=== PATIENT | female | born 1995 | race Two or more races ===

== ENCOUNTER 2020-10-09 21:53 | Emergency (ER) | payer SELFPAY ==
[~2020-10-09] VITALS: Ht 172.7 cm; Wt 99.8 kg
--- NOTE | 2020-10-09 22:00 | NUR ---
ED Nurse Note: Recieved pt BIBA with c/o increased heart rate after eating marijuanna edible, pt is awake, alert and oriented x 4, denies chestpain, sob, or any other complaints, pt is very anxious and states she is scared, pt has heart rate of 130's, pt immediately gowned and palced on monitoring, MD at bedside, will start IV line and resume care as ordered with close monitoring.
--- NOTE | 2020-10-09 22:24 | Emergency Room Report ---
History of Present Illness General Chief Complaint: Palpitations Source: Patient Present Illness HPI Disclaimer: Please note that this report is being documented using DRAGON technology. This can lead to erroneous entry secondary to incorrect interpretation by the dictating instrument. HPI: 25-year-old female presents for evaluation of palpitations. Comes by EMS after accidentally ingesting marijuana edibles approximately 6 or 7 PM. Does not know the milligrams. She has a prior history of ventricular tachycardia and is status post 3 cardiac ablations at [facility] the last of which was 2015. Follows with cardiology at [facility]. Is no longer taking any medications. Reports feeling anxious and dry mouth otherwise denies significant chest pain, shortness of breath, lightheadedness or loss of consciousness. EMS gave adenosine prior to arrival with improvement in heart rate from the 170s to the 130s. Denies other coingestants. 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 EOMI. Cardiovascular: Tachycardic. S1 and S2 normal. No murmur appreciated Resp: Normal work of breathing. No cough, wheezing or crackles appreciated Abdomen: Abdomen is soft, nondistended. Nontender Skin: Intact. No abrasions, laceration or rash over the exposed skin MSK: Normal tone and bulk. Moving all extremities. No obvious deformity. Neuro: Awake and alert. Mentating appropriately. Medical Decision Making Diagnostic Impression: Primary Impression: Tachycardia ER Course 25-year-old female presenting for evaluation of tachycardia and palpitations after accidentally ingesting marijuana edible earlier today. EKG on arrival shows sinus tachycardia with a rate in the 130s. AK interval within normal limits. No ST segment elevation. Chest x-ray unremarkable. Patient given diltiazem heart rate improved. Labs returned within normal limits. Tested positive for THC. Thyroid function within normal limits. hCG negative. Patient is feeling well stable for outpatient follow-up. 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 Instructed to return with new or worsening symptoms. She understands and agrees with this treatment plan. Laboratory Tests Test 10/09/20 22:10 10/09/20 23:35 White Blood Count 14.9 K/UL (4.8-10.8) H Red Blood Count 4.08 M/UL (4.20-5.40) L Hemoglobin 13.2 G/DL (12.0-16.0) Hematocrit 38.4 % (37.0-47.0) Mean Corpuscular Volume 94 FL (80-99) Mean Corpuscular Hemoglobin 32.5 PG (27.0-31.0) H Mean Corpuscular Hemoglobin Concent 34.4 G/DL (32.0-36.0) Red Cell Distribution Width 13.0 % (11.6-14.8) Platelet Count 250 K/UL (150-450) Mean Platelet Volume 7.6 FL (6.5-10.1) Neutrophils (%) (Auto) 80.7 % (45.0-75.0) H Lymphocytes (%) (Auto) 13.6 % (20.0-45.0) L Monocytes (%) (Auto) 4.2 % (1.0-10.0) Eosinophils (%) (Auto) 0.4 % (0.0-3.0) Basophils (%) (Auto) 1.2 % (0.0-2.0) Sodium Level 140 MMOL/L (136-145) Potassium Level 4.1 MMOL/L (3.5-5.1) Chloride Level 105 MMOL/L (98-107) Carbon Dioxide Level 24 MMOL/L (21-32) Anion Gap 11 mmol/L (5-15) Blood Urea Nitrogen 21 mg/dL (7-18) H Creatinine 0.9 MG/DL (0.55-1.30) Estimated Glomerular Filtration Rate > 60 mL/min (>60) Glucose Level 168 MG/DL (74-106) H Calcium Level 9.3 MG/DL (8.5-10.1) Total Bilirubin 0.4 MG/DL (0.2-1.0) Aspartate Amino Transferase (AST) 28 U/L (15-37) Alanine Aminotransferase (ALT) 37 U/L (12-78) Alkaline Phosphatase 103 U/L (46-116) Troponin I 0.004 ng/mL (0.000-0.056) Total Protein 7.8 G/DL (6.4-8.2) Albumin 4.0 G/DL (3.4-5.0) Globulin 3.8 g/dL Albumin/Globulin Ratio 1.1 (1.0-2.7) Thyroid Stimulating Hormone (TSH) 1.185 uiU/mL (0.358-3.740) Free Thyroxine 1.03 NG/DL (0.76-1.46) Free Triiodothyronine 2.3 pg/mL (2.3-4.2) Urine HCG, Qualitative Negative (NEGATIVE) Urine Opiates Screen Negative (NEGATIVE) Urine Barbiturates Screen Negative (NEGATIVE) Phencyclidine (PCP) Screen Negative (NEGATIVE) Urine Amphetamines Screen Negative (NEGATIVE) Urine Benzodiazepines Screen Negative (NEGATIVE) Urine Cocaine Screen Negative (NEGATIVE) Urine Marijuana (THC) Screen Positive (NEGATIVE) H EKG Diagnostic Results Troponin ordered: Yes When was troponin ordered?: Oct 09, 2020 EKG Time: 21:42 Rate: tachycardiac Rhythm: NSR ST Segments: no acute changes Other Impression Sinus tachycardia, normal axis, normal intervals, QTC 433 ms, AK interval 138 ms, QRS duration 82 ms. Rhythm Strip Diag. Results Rhythm Strip Time: 21:42 EP Interpretation: yes Rate: 130s Rhythm: NSR, no PVC's, no ectopy Chest X-Ray Diagnostic Results Chest X-Ray Diagnostic Results : Chest X-Ray Ordered: Yes # of Views/Limited/Complete: 1 View Indication: Chest Pain EP Interpretation: Yes Interpretation: no consolidation, no effusion, no pneumothorax, no acute cardiopulmonary disease Impression: No acute disease Electronically Signed by: Electronically signed by Dr. Lloyd Mota MD Last Vital Signs Date Time Temp Pulse Resp B/P (MAP) Pulse Ox O2 Delivery O2 Flow Rate FiO2 10/09/20 21:38 97.9 138 19 146/72 (96) 98 Room Air Disposition: HOME, SELF-CARE Condition: Stable Lloyd Mota MD Oct 09, 2020 22:24
[2020-10-09] MEDS ORDERED: dilTIAZem HCl 25mg/5ml Inj IVP ONE (22:30)
--- NOTE | 2020-10-09 22:40 | Diagnostic Imaging Report ---
INDICATION: Chest pain. COMPARISON: Unavailable. FINDINGS: Single frontal view demonstrates a normal cardiomediastinal silhouette. The lungs are clear. No focal consolidation, pleural effusion or pneumothorax. No pleural effusions. Old right clavicle fracture. IMPRESSION: No acute cardiopulmonary disease.
--- NOTE | 2020-10-09 22:45 | NUR ---
ED Nurse Note: Pt given Cardizem as ordered, heart rate immediately decreased to 100, pt continues to deny chest pain, IV site patent, will continue to closely monitor, MD aware of results.
[2020-10-09 22:53] LABS: BASOPHILS % (AUTO) 1.2 % (0.0-2.0); EOSINOPHILS % (AUTO) 0.4 % (0.0-3.0); HEMATOCRIT 38.4 % (37.0-47.0); HEMOGLOBIN 13.2 G/DL (12.0-16.0); LYMPHOCYTES % (AUTO) 13.6 % (20.0-45.0); MEAN CORPUSCULAR VOLUME 94 FL (80-99); MONOCYTES % (AUTO) 4.2 % (1.0-10.0); NEUTROPHILS % (AUTO) 80.7 % (45.0-75.0); PLATELET COUNT 250 K/UL (150-450); RED BLOOD COUNT 4.08 M/UL (4.20-5.40); WHITE BLOOD COUNT 14.9 K/UL (4.8-10.8)
[2020-10-09 23:00] VITALS: BP 114/79
[2020-10-09 23:09] LABS: ANION GAP 11 mmol/L (5-15); BLOOD UREA NITROGEN 21 mg/dL (7-18); CALCIUM 9.3 MG/DL (8.5-10.1); CARBON DIOXIDE 24 MMOL/L (21-32); CHLORIDE 105 MMOL/L (98-107); CREATININE 0.9 MG/DL (0.55-1.30); POTASSIUM 4.1 MMOL/L (3.5-5.1); SODIUM 140 MMOL/L (136-145)
[2020-10-09 23:25] LABS: ALANINE AMINOTRANSFERASE 37 U/L (12-78); ALBUMIN/GLOBULIN RATIO 1.1 (1.0-2.7); ALKALINE PHOSPHATASE 103 U/L (46-116); ASPARTATE AMINO TRANSFERASE 28 U/L (15-37); BILIRUBIN,TOTAL 0.4 MG/DL (0.2-1.0)
[2020-10-10] VITALS: BP 117/73
--- NOTE | 2020-10-10 | NUR ---
ED Nurse Note:ER DISCHARGE NOTE: Patient is cleared to be discharged per ERMD, pt is aox4, on room air, with stable vital signs. pt was given dc and prescription instructions, pt was able to verbalize understanding, pt id band and iv site removed without complications. pt is able to ambulate with steady gait. pt took all belongings.
[2020-10-10 00:30] VITALS: BP 117/73
--- NOTE | 2020-10-11 10:47 | Cardiology Report ---
APPROVED REPORT EKG Measurement Heart [id number] <Conclusion> Sinus tachycardia Septal infarct, age undetermined Abnormal ECG
== END 2020-10-10 00:30 | disposition home or self-care (01) ==
LOC: EDBD 21:53 → EMR 22:15
DX: R00.2 Palpitations (principal); R00.0 Tachycardia, unspecified; Z88.0 Allergy status to penicillin
CPT/HCPCS: 36415; 71045; 80053; 80307; 81025; 84439; 84443; 84481; 84484; 85025; 93005; 96361; 96374; 99284; J7030